=== PATIENT | male | born 1960 | race Caucasian/White ===

== ENCOUNTER 2016-04-23 07:24 | Day surgery (SDC) | payer OTHER ==
[~2016-04-23 07:24] MED LIST: ACETAMINOPHEN 1000MG/100 ML PREMIX IV ONE
[2016-04-23] MEDS ORDERED: KETOROLAC 30 MG/ML VIAL IVP ONE (14:00)
[2016-04-23] MEDS ORDERED: MIDAZOLAM HCL 2MG/2ML VIAL IV ONE (14:00)
[2016-04-23] MEDS ORDERED: ONDANSETRON HCL IV 4 MG/2 ML VIAL IVP ONE (14:00)
[2016-04-23] MEDS ORDERED: SEVOFLURANE 250 ML INH ONE (14:00)
[2016-04-23] MEDS ORDERED: FENTANYL PF 100MCG/2ML VIAL IV ONE (14:00)
[2016-04-23] MEDS ORDERED: LIDOCAINE 2% MDV (20MG/ML) 20ML VIAL IV ONE (14:00)
[2016-04-23] MEDS ORDERED: PROPOFOL 10 MG/ML VIAL IV ONE (14:00)
[2016-04-23] MEDS ORDERED: OXYCODONE HCL/APAP 5MG/325MG TABLET PO ONE (15:31)
[2016-04-23] MEDS ORDERED: BUPIVACAINE 0.25% W/EPI MPF 30ML VIAL IVP ONE (15:31)
--- NOTE | 2016-04-25 13:01 | Operative Note ---
DATE OF SURGERY: 04/23/2016 REFERRING PHYSICIAN: Ayaz Christensen D.O. PREOPERATIVE DIAGNOSES: 1. Torn medial meniscus, left knee. 2. Osteoarthritis, left knee. 3. Synovitis, left knee. 4. Loose joint body, left knee. POSTOPERATIVE DIAGNOSES: 1. Torn medial meniscus, left knee. 2. Medial mid patellar plica, left knee. 3. Osteoarthritis of the left knee. OPERATIVE PROCEDURES: 1. Arthroscopic partial medial meniscectomy, left knee. 2. Arthroscopic resection, medial mid patellar plica, left knee. 3. Arthroscopic chondroplasty, medial femoral condyle and patella, left knee. Surgeon: Heri Romano D.O. DESCRIPTON: This 56-year-old male was taken to the Operating Room, placed in the supine position on the operating room table where general anesthesia was induced. The left lower extremity was then elevated. It was exsanguinated and tourniquet inflated to 300 mmHg. Arthroscopic knee horn applied. Left knee prepped with Hibiclens and draped in the usual sterile fashion. The inferolateral portal was established with a 4 mm arthroscope and initial evaluation of the joint demonstrated evidence of significant degenerative disease of the patella with grade 3 changes noted throughout, mostly at the median ridge, with large chunks of articular cartilage being fractured and disrupted. This was probed and confirmed to be the case. Through an inferomedial portal chondroplasty was performed to restore stability to the articular cartilage there. A thickened fibrotic medial mid patellar plica was present. This also was resected. He had extensive degenerative disease of the medial side of the trochlea with the entire articular cartilage being disrupted with no cartilage present at all on the trochlea to the level of the meniscal rest and then the weightbearing surface of the medial femoral condyle also demonstrated severe grade 3 changes with large loose flaps of articular cartilage and chondroplasty was performed to these areas to stabilize the remaining articular cartilage at the periphery of these lesions. The patient also demonstrated a degenerative-type tear of the posterior horn of the medial meniscus and this was relatively small at the posterior horn. At about the 12 o'clock position we resected approximately 3 to 4 mm of meniscal tissue to stabilize the meniscus and then this was reprobed and confirmed to be stable. The wound was irrigated and we suctioned all chips of articular cartilage and meniscal tissue from the joint. The remainder of the meniscus appeared normal. The intercondylar notch appeared normal except for the fact that he had a large osteophyte at the base of the ACL but this was firmly scarred to this area and we did not further disturb it to create unnecessary bleeding. The lateral compartment was entered and the articular cartilage and meniscus appeared normal with no instability of the meniscus or articular cartilage being present. The joint was then copiously irrigated and suctioned and we reprobed all structures with no evidence of further pathology being identified. The wound was then copiously irrigated with lactated Ringer solution, suctioned, and the instruments were removed. The portals were infiltrated with 0.25% Marcaine with epinephrine. Sterile dressings applied. Tourniquet and knee horn released and the patient taken to the Recovery Room in satisfactory condition. 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 As described above degenerative tear of the posterior horn of the medial meniscus was present and a fibrotic medial mid patellar plica also identified. Heri Romano DO CC: Ayaz Christensen D.O., [id number], [place] [address] [facility]
== END 2016-04-23 10:29 | disposition home or self-care (01) ==
LOC: SUR 07:24
PROVIDERS: ATTEND Orthopaedic Surgery
DX: S83.242A Other tear of medial meniscus, current injury, left knee, initial encounter (principal); M17.12 Unilateral primary osteoarthritis, left knee; M23.42 Loose body in knee, left knee; M65.9 Synovitis and tenosynovitis, unspecified; I10 Essential (primary) hypertension; E78.00 Pure hypercholesterolemia, unspecified
CPT/HCPCS: 29881; 01400; 93005; 93010; J1885; J2405; J3010